=== PATIENT | female | born 1995 | race Caucasian/White ===

== ENCOUNTER 2020-09-22 20:51 | Emergency (ER) | payer OTHER ==
--- NOTE | 2020-09-22 22:12 | RAD ---
Radiograph right humerus 2 views: 09/22/2020 9:53 PM HISTORY: 25-year-old female with acute, traumatic right arm pain COMPARISON: None FINDINGS: There is a fracture of the mid humeral diaphysis, with an approximately 1.5 cm craniocaudal gap betwe en major fracture fragments, and no evidence of callus or union. The fracture is traversed by a long metallic plate and screws from the proximal diaphysis to the dist al metaphysis. However, the metallic plate itself is fractured and mildly displaced, at the bony fracture site. Mild anteromedial angulation, and approximately one third shaft width medial displacement, of major d istal fragment relative to major proximal fragment. A few displaced butterfly comminuted fracture fragments medial to the fracture. No evidence of callus or union. Splint at arm and elbow. IMPRESSION: 1. Status post open reduction internal fixation of a mid humeral shaft displaced fracture. 2. The hardware itself is broken and displaced at the site of the displaced fracture.
[2020-09-22] MEDS ORDERED: Morphine 4 MG/ML VIAL ONE (23:03)
[2020-09-22] MEDS ORDERED: Ketorolac Tromethamine 30 MG/ML VIAL ONE (23:03)
[2020-09-23] MEDS ORDERED: Fentanyl 100 MCG/2 ML VIAL ONE ×2 (00:31→00:37)
[2020-09-23] MEDS ORDERED: Ondansetron PF 4 MG/2 ML Vial ONE (00:39)
== END 2020-09-23 01:05 | disposition home or self-care (01) ==
LOC: ERS 20:51
DX: S42.351A Displaced comminuted fracture of shaft of humerus, right arm, initial encounter for closed fracture (principal); T84.418A Breakdown (mechanical) of other internal orthopedic devices, implants and grafts, initial encounter; W22.8XXA Striking against or struck by other objects, initial encounter
CPT/HCPCS: 29105; 96372; 96374; 96375; J1885; J2270; J2405; J3010

== ENCOUNTER 2020-09-25 12:23 | Observation (INO) | payer OTHER, SELFPAY ==
[2020-09-23 14:35] VITALS: BMI 33.5
[~2020-09-25 12:23] MED LIST: Bupivacaine HCl 0.5%/Epinephrine 1:200,000/PF 30 ml Vial ONE; Dexamethasone 20 MG/5 ML VIAL ONE; Glycopyrrolate 0.2 MG/ML 5 ML SYRINGE ONE; Lidocaine 1% PF 5 ML VIAL ONE; Metoclopramide HCl 10 MG/2 ML VIAL ONE; Ondansetron PF 4 MG/2 ML Vial ONE; PROPOFOL 200 MG/20 ML VIAL ONE; Rocuronium Bromide 10 MG/ML (10ML VIAL) ONE
[2020-09-25] MEDS ORDERED: Clindamycin/D5W 900 mg/50 ml Premix Bag ONE (13:38)
[2020-09-25] MEDS ORDERED: Levofloxacin 500 mg/D5W 100 ml Premix Bag ONE (13:38)
[2020-09-25] MEDS ORDERED: Midazolam HCl 2 mg/2 ml Vial ONE ×2 (13:51→14:17)
[2020-09-25] MEDS ORDERED: Fentanyl 100 MCG/2 ML VIAL ONE ×6 (13:51→18:30)
--- NOTE | 2020-09-25 16:46 | RAD ---
Right humerus 2 views intraoperative fluoroscopy HISTORY: Fracture. FINDINGS: Intraoperative fluoroscopy was provided for internal fixation as performed by Dr. Kaiser . Spot fluoroscopic images show metallic sideplate and multiple screws transfixing the medial humeral fracture, in anatomic alignment. Fluoroscopy time 72 seconds.
[2020-09-25] MEDS ORDERED: Ondansetron PF 4 MG/2 ML Vial SLOW IVP PRN (16:53)
[2020-09-25] MEDS ORDERED: Fentanyl 100 MCG/2 ML VIAL SLOW IVP PRN (16:53)
[2020-09-25] MEDS ORDERED: Communication Order-Pharmacy FS SCH (17:00)
[2020-09-25] MEDS ORDERED: Meperidine HCl/PF 25 MG/ML VIAL ONE (17:13)
[2020-09-25] MEDS ORDERED: HYDROmorphone 0.5 MG/0.5 ML SYRINGE ONE ×4 (17:25→18:07)
--- NOTE | 2020-09-25 17:35 | OP ---
DATE OF PROCEDURE: 09/25/2020 PROCEDURES PERFORMED: 1. Open reduction and internal fixation of right humerus shaft fracture nonunion with bone grafting from right femur. 2. Hardware removal from right humerus. 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 COMPLICATIONS: None. ESTIMATED BLOOD LOSS: Minimal. AUDIENCE COORDINATOR: Greg Dobbins PA-C. IMPLANTS: Synthes 4.5-mm large fragment plate, 8-hole, was utilized. INDICATIONS: Ms. Wing is a 25-year-old female who has injured her right arm. She has been treated operatively for humerus fracture. Unfortunately, this has gone on to nonunion. Her previously placed plate has fractured and she has recurrent instability of the arm. She has been indicated now for open reduction and internal fixation to restore anatomic alignment, promote healing, and prevent complications of her injury. She is indicated for bone grafting from the right femur as well to enhance her chances of healing. DESCRIPTION OF PROCEDURE: Ms. Wing was identified in the preoperative holding area. Her correct extremity was marked. She was carried to the operating room. She was positioned supine. General anesthesia was induced. A multidisciplinary time-out was performed. The right upper extremity was prepped and draped in sterile fashion. We began the procedure with a posterior approach to the upper arm. We dissected down through the subcutaneous tissues to the triceps. The triceps muscle was split. We worked more deeply down through the triceps muscle down to the bony level distally. We exposed the underlying hardware and plate. We cleared the soft tissues from that. We cleared bone, which had grown around the plate as well. We removed the distal 4 screws. We then worked more proximally. We identified the neurovascular bundle of the radial nerve. The patient had extensive scar tissue in this site near the nonunion; however, we were able to identify the course of the nerve starting more proximally and in a more normal plane of tissue. We traveled more distally following this until it pierced the lateral musculature of the upper arm. At this point, we were able to elevate the neurovascular bundle off the underlying humerus, exposing the humeral fracture as well as the underlying plate. This gave us exposure to remove the proximal aspect of the plate. We removed 4 screws and the remaining plate. We thoroughly irrigated with copious lavage, but prior to this, we did take a deep culture. We then smoothed the bone with a rongeur. We then delivered the bone ends. We used a curette as well as a drill to enter the intramedullary canal. We then cleared all soft tissues of the fibrous nonunion, exposing the bony ends. We then used an osteotome to shingle the bony ends. We had good bleeding bony surface. At this point, we moved to the femur. We made an incision proximal to the greater trochanter. We tunneled more deeply down to the tip of the trochanter and inserted a guidewire. We then overdrilled the guidewire. We used intraoperative x-ray to confirm that we were in a good position. Next, we passed a ball-tipped guidewire from proximal to distal. We over reamed the guidewire and obtained a significant amount of irrigation and aspirate her graft. This was taken to the back table. We confirmed that we had no complications on x-ray. We closed this thigh wound. We then moved back to the humerus. We reduced the humerus and held this with a reduction clamp. We then applied our 4.5-mm plate to the posterior humeral surface. We placed a screw distally followed by multiple screws proximally using an eccentric drilling pattern for compression. We packed graft all around the nonunion site anteriorly, medially, and laterally. We had an ample amount of graft. We took x-ray images once all screw holes were filled. We had good reduction and were satisfied with our plate placement. At this point, after thorough irrigation, we closed in layers and a sterile dressing was applied. The patient was taken to the recovery room in good condition without complication. The certified first assistant surgeon was responsible for positioning the patient, preparing the injured extremity, applying the tourniquet, and assisting in preparation for surgery. The certified first assistant was instrumental in reducing the injured limb by applying traction and reduction maneuvers as well as holding retractors and reduction tools. The certified first assistant also was instrumental in assisting in exposure throughout the operation using appropriate retractors. The certified first assistant participated in closure of the operative site as well as dressing application and splint application. Job ID: [id number]
[2020-09-25] MEDS ORDERED: Tetracaine HCl 0.5% Ophth Soln 2 ML Bottle ONE (17:51)
[2020-09-25] MEDS ORDERED: Tetracaine 0.5% PF 4 ML BOT L EYE PRN (18:57)
[2020-09-25] MEDS: Ketorolac Tromethamine 30 MG/ML VIAL IVP SCH ×2 (19:38→23:00)
[2020-09-25] MEDS: Morphine 4 MG/ML VIAL SLOW IVP PRN (20:19)
[2020-09-25] MEDS: Clindamycin/D5W 900 MG in Premix Bag 1 BAG IVPB SCH (23:00)
[2020-09-26] MEDS: Morphine 4 MG/ML VIAL SLOW IVP PRN ×4 (02:22→15:31)
[2020-09-26] MEDS: Levothyroxine Sodium 25 MCG TAB PO SCH (05:15)
[2020-09-26] MEDS: Clindamycin/D5W 900 MG in Premix Bag 1 BAG IVPB SCH (05:15)
[2020-09-26] MEDS: Ketorolac Tromethamine 30 MG/ML VIAL IVP SCH ×3 (05:15→18:04)
[2020-09-26 05:41] LABS: #Lymphocytes 0.6 thou/uL (1.20-3.40); #Monocytes 0.6 thou/uL (0.11-0.59); %Basophils 0.1 % (0.0-1.0); %Eosinophils 0.2 % (0.0-10.0); %Lymphocytes 6.1 % (21.0-51.0); %Monocytes 6.2 % (0.0-10.0); %Neutrophils 87.5 % (42.0-75.0); Hemoglobin 11.1 g/dL (12.0-16.0); Mean Corpuscular Hemoglobin 29.5 pg (27.0-31.0); Mean Corpuscular Volume 89.5 fL (78.0-98.0); Mean Platelet Volume 7.2 fL (7.4-10.4); Platelet Count 297 thou/uL (130-400); RBC Distribution Width 12.5 % (11.5-14.5); Red Blood Cell (RBC) Count 3.76 mill/uL (4.20-5.40); White Blood Cell (WBC) Count 10.2 thou/uL (4.8-10.8)
[2020-09-26] MEDS: DULoxetine 30 MG CAP PO SCH (08:35)
[2020-09-26] MEDS: Bupropion 150 MG XL TAB PO SCH (08:36)
[2020-09-26] MEDS: HYDROcodone/Acetaminophen 10/325 mg Tablet PO PRN ×4 (08:36→21:18)
[2020-09-26] MEDS: Spironolactone 100 MG TAB PO SCH (09:44)
[2020-09-26] MEDS: Cyclobenzaprine 10 MG TAB PO PRN ×2 (10:57→20:10)
[2020-09-26] MEDS: traMADol HCl 50 MG TAB PO PRN ×2 (10:58→18:06)
[2020-09-26] MEDS ORDERED: Senokot 8.6 MG TAB PO SCH (11:15)
[2020-09-26] MEDS ORDERED: Polyethylene Glycol 3350 17 GM Packet PO SCH (11:15)
[2020-09-26] MEDS: Senokot 8.6 MG TAB PO SCH (20:08)
[2020-09-26] MEDS: Ibuprofen 200 MG TAB PO PRN (20:10)
[2020-09-26] MEDS: Gabapentin 300 MG CAP PO SCH (21:14)
[2020-09-27] MEDS: Ketorolac Tromethamine 30 MG/ML VIAL IVP SCH ×2 (00:34→05:38)
[2020-09-27] MEDS: HYDROcodone/Acetaminophen 10/325 mg Tablet PO PRN ×4 (01:05→14:14)
[2020-09-27] MEDS: Levothyroxine Sodium 25 MCG TAB PO SCH (05:39)
[2020-09-27] MEDS: DULoxetine 30 MG CAP PO SCH (10:18)
[2020-09-27] MEDS: Gabapentin 300 MG CAP PO SCH ×3 (10:18→20:46)
[2020-09-27] MEDS: Senokot 8.6 MG TAB PO SCH ×2 (10:19→20:47)
[2020-09-27] MEDS: Polyethylene Glycol 3350 17 GM Packet PO SCH (10:20)
[2020-09-27] MEDS: Bupropion 150 MG XL TAB PO SCH (10:23)
[2020-09-27] MEDS ORDERED: Bisacodyl 10 MG SUPP PR PRN (16:03)
[2020-09-27] MEDS ORDERED: Fleet Enema 133 ML BOT PR SCH (16:15)
[2020-09-27] MEDS: Spironolactone 100 MG TAB PO SCH (16:50)
[2020-09-27] MEDS: Morphine 4 MG/ML VIAL SLOW IVP PRN (20:47)
[2020-09-27] MEDS: traMADol HCl 50 MG TAB PO PRN (21:35)
[2020-09-27] MEDS: Ibuprofen 200 MG TAB PO PRN (21:36)
[2020-09-28] MEDS: Cyclobenzaprine 10 MG TAB PO PRN (02:39)
[2020-09-28] MEDS: Levothyroxine Sodium 25 MCG TAB PO SCH (06:22)
[2020-09-28 08:03] VITALS: TEMP 97.8
[2020-09-28] MEDS: HYDROcodone/Acetaminophen 10/325 mg Tablet PO PRN (09:38)
[2020-09-28] MEDS: DULoxetine 30 MG CAP PO SCH (09:40)
[2020-09-28] MEDS: Gabapentin 300 MG CAP PO SCH (09:40)
[2020-09-28] MEDS: Senokot 8.6 MG TAB PO SCH (09:40)
[2020-09-28] MEDS: Bupropion 150 MG XL TAB PO SCH (09:41)
[2020-09-28] MEDS: Spironolactone 100 MG TAB PO SCH (09:44)
[2020-09-28] MEDS: Polyethylene Glycol 3350 17 GM Packet PO SCH (09:45)
[2020-09-28] MEDS ORDERED: Docusate 100 MG CAP PO PRN (11:19)
[2020-09-28 12:04] VITALS: BP 117/61
--- NOTE | 2020-10-01 08:45 | DIS ---
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 OPERATIVE PROCEDURE: 1. Revision open reduction and internal fixation, right midshaft humeral nonunion. 2. Intramedullary bone grafting harvest of right femoral shaft. CONSULTANTS: [facility]. BRIEF CLINICAL HISTORY: Mague is a 25-year-old female, who was admitted to [facility], underwent the above procedure on date of admission without intra-, jose juan-, or postoperative complication. Her hospital course was prolonged slightly due to some fairly significant constipation on postop day 2; therefore, we provided her with suppositories and the patient had bowel action that evening. On date of discharge, the patient is afebrile. She is ambulatory without assistance, tolerating regular diet and voiding without difficulty. Her incisions are clean. Her splint is intact on the right upper extremity and she is utilizing her sling as prescribed. DISCHARGE MEDICATIONS: Include [place], stool softener, gabapentin. We will be happy to see the patient on an as-needed basis between now and her next scheduled appointment in 12 to 14 days for splint and staple removal. CONDITION ON DISCHARGE: Stable. PROGNOSIS: Good. Job ID: [id number]
== END 2020-09-28 12:47 | disposition home or self-care (01) ==
LOC: SDC 12:23 → SJJU 16:53
PROVIDERS: ADMIT Orthopaedic Surgery; ATTEND Orthopaedic Surgery
PROC: 0PSF04Z Reposition Right Humeral Shaft with Internal Fixation Device, Open Approach (ICD-10-PCS; principal; 2020-09-25)
PROC: 0PUF07Z Supplement Right Humeral Shaft with Autologous Tissue Substitute, Open Approach (ICD-10-PCS; 2020-09-25)
PROC: 3E0T3BZ Introduction of Anesthetic Agent into Peripheral Nerves and Plexi, Percutaneous Approach (ICD-10-PCS; 2020-09-25)
DX: S42.301K Unspecified fracture of shaft of humerus, right arm, subsequent encounter for fracture with nonunion (principal); G89.18 Other acute postprocedural pain; F41.9 Anxiety disorder, unspecified; E07.9 Disorder of thyroid, unspecified; J30.2 Other seasonal allergic rhinitis; Z79.899 Other long term (current) drug therapy; Z88.0 Allergy status to penicillin; Z91.030 Bee allergy status; V29.9XXD Motorcycle rider (driver) (passenger) injured in unspecified traffic accident, subsequent encounter
CPT/HCPCS: 36415; 76000; 85025; 87070; 87205; 96365; 96366; 96375; 96376; C1713; G0378; J1100; J1170; J1885; J1956; J2175; J2250; J2270; J2405; J2704; J2765; J3010; J3490